=== PATIENT | male | born 1945 | race Caucasian/White ===

== ENCOUNTER 2021-04-23 19:32 | Inpatient (IN) | payer MEDICARE, OTHER ==
[~2021-04-23] VITALS: Ht 160 cm; Wt 69.1 kg
[~2021-04-23 19:32] MED LIST: ROSU5TAB PO; VALS80TA2
--- NOTE | 2021-04-23 19:41 | NUR ---
Note liliana in EDM - 04/23/21 at 1942 by RHIANNON NIRU 89 FROM HOME C/O WEAKENESS AND HYPOTENSION, PT STATES HAVING DIARRHEA X1 DAYS AND NOT DRINKING MUCH WATER, BP WNL, HR IN THE 30-40S MD AT BEDSIDE FOR EVAL
--- NOTE | 2021-04-23 19:51 | NUR ---
CALLED [facility], PAGED IN HOUSE COUNSEL DR TSAI
[2021-04-23 19:58] LABS: BASOPHILS # (AUTO) 0.1 /CMM (0.0-0.2); EOSINOPHILS % (AUTO) 1.6 % (0.0-6.0); HEMATOCRIT 45 % (39-51); LYMPHOCYTES # (AUTO) 3.4 /CMM (0.8-4.8); LYMPHOCYTES % (AUTO) 29.2 % (20.0-44.0); MEAN CORPUSCULAR HGB CONC 31 g/dl (31.0-36.0); MEAN CORPUSCULAR VOLUME 79 fL (80-96); MONOCYTES # (AUTO) 1.4 /CMM (0.1-1.30); MONOCYTES % (AUTO) 12.4 % (2.0-12.0); NEUTROPHILS # (AUTO) 6.5 /CMM (1.8-8.9); NEUTROPHILS % (AUTO) 55.8 % (43.0-81.0); PLATELET COUNT (AUTO) 210 /CMM (150-450); RED BLOOD CELL COUNT(AUTO) 5.66 MIL/uL (4.5-6.0); WHITE BLOOD COUNT (AUTO) 11.7 K/uL (4.3-11.0)
[2021-04-23] MEDS ORDERED: IV NS 0.9% 1,000 ML BAG IV ONE (20:00)
[2021-04-23 20:09] LABS: CALCIUM, SERUM 8.5 mg/dL (8.5-10.1); CARBON DIOXIDE 20 mmol/L (21-32); CHLORIDE 104 mmol/L (98-107); CREATININE 1.3 mg/dL (0.6-1.3); GLUCOSE 158 mg/dL (74-106); POTASSIUM 3.5 mmol/L (3.5-5.1); SODIUM SERUM 138 mmol/L (136-145); UREA NITROGEN, BLOOD 29 mg/dL (7-18)
[2021-04-23 20:21] LABS: MAGNESIUM 1.5 mg/dL (1.8-2.4); NT-PRO BNP 32 pg/mL (0-125); PHOSPHORUS 3.6 mg/dL (2.5-4.9)
--- NOTE | 2021-04-23 20:23 | NUR ---
PANEL PAGED PER MD'S ORDER
[2021-04-23] MEDS ORDERED: Magnesium 1 GM/2 ML VIAL IV ONE (20:30)
[2021-04-23] MEDS ORDERED: Magnesium 1GM/D5W 100ML PREMIX 200 ML IV ONE (20:33)
--- NOTE | 2021-04-23 20:41 | NUR ---
RE PAGED DR PADILLA
[2021-04-23 20:50] LABS: THYROID STIMULATING HORMONE 4.937 uIU/mL (0.358-3.74)
--- NOTE | 2021-04-23 21:02 | NUR ---
CALLED HOUSE SUP FOR TELE BED
--- NOTE | 2021-04-23 21:24 | NUR ---
ROOM 312-2
[2021-04-23] MEDS ORDERED: IV NS 0.9% 1,000 ML IV ONE (21:30)
[2021-04-23] MEDS ORDERED: MAG HYDROX/AL HYDROX/SIMETH 30 ML UDC PO PRN (21:30)
[2021-04-23] MEDS ORDERED: ONDANSETRON HCL/PF 4 MG/2 ML VIAL IVP PRN (21:30)
[2021-04-23] MEDS ORDERED: HYDROCODONE/APAP 5/325MG TABLET PO PRN (21:30)
[2021-04-23] MEDS ORDERED: ZOLPIDEM TARTRATE 5 MG TABLET PO PRN (21:30)
[2021-04-23] MEDS ORDERED: Z GUARD REMEDY 2 OZ OINT TP PRN (21:30)
[2021-04-23] MEDS ORDERED: ACETAMINOPHEN 325 MG TABLET PO PRN (21:30)
[2021-04-23] MEDS ORDERED: MAGNESIUM HYDROXIDE 30 ML UDC PO PRN (21:30)
--- NOTE | 2021-04-23 22:00 | NUR ---
PT TRANSPORTED TO ROOM 312-2
[2021-04-23 22:01] VITALS: BP 120/66
--- NOTE | 2021-04-23 22:01 | NUR ---
ENAMEL MACHINE OPERATOR: ADMISSION 76 y/o male A/O x4. Skin checked done, skin intact, no pressure injury. No c/o pain. Oriented to room, unit, staff. Fall precaution maintained.
[2021-04-23 22:44] VITALS: BP 120/66
[2021-04-24 00:13] VITALS: BP 109/62
[2021-04-24 04:20] VITALS: BP 105/63
--- NOTE | 2021-04-24 06:01 | NUR ---
CONTROL CENTER OPERATOR: END OF SHIFT REPORT Sinus Sumit in the Tele monitor HR 49. Patient no distress, no c/o chest pain, tolerating room air. Patient independent with mobility, no episode of fainting, no dizziness during ambulation. Ongoing IVF. Fall precaution maintained. Will endorse to oncoming RN.
[2021-04-24 06:28] LABS: BASOPHILS % (AUTO) 0.4 % (0.0-2.0); EOSINOPHILS % (AUTO) 1.1 % (0.0-6.0); HEMATOCRIT 43 % (39-51); HEMOGLOBIN 13.7 g/dL (13.5-17.5); LYMPHOCYTES # (AUTO) 2.7 /CMM (0.8-4.8); LYMPHOCYTES % (AUTO) 24.1 % (20.0-44.0); MEAN CORPUSCULAR HGB CONC 32 g/dl (31.0-36.0); MEAN CORPUSCULAR VOLUME 80 fL (80-96); MONOCYTES # (AUTO) 1.2 /CMM (0.1-1.30); MONOCYTES % (AUTO) 10.9 % (2.0-12.0); NEUTROPHILS # (AUTO) 7.1 /CMM (1.8-8.9); NEUTROPHILS % (AUTO) 63.5 % (43.0-81.0); PLATELET COUNT (AUTO) 194 /CMM (150-450); RED BLOOD CELL COUNT(AUTO) 5.42 MIL/uL (4.5-6.0); WHITE BLOOD COUNT (AUTO) 11.2 K/uL (4.3-11.0)
[2021-04-24 06:31] LABS: CALCIUM, SERUM 8.5 mg/dL (8.5-10.1); CREATININE 1.3 mg/dL (0.6-1.3); PHOSPHORUS 3.5 mg/dL (2.5-4.9); POTASSIUM 3.9 mmol/L (3.5-5.1)
--- NOTE | 2021-04-24 07:15 | NUR ---
HOME AID OPENING NOTE PATIENT RECEIVED ALERT AND ORIENTED X 4 ON BED. PATIENT ON ROOM AIR WITH NON LABORED AND EVEN/ REGULAR BREATHING, WITH NO SIGNS OF RESPIRATORY DISTRESS. PATIENT WITH IV ACCESS ON RIGHT FA G#22 AND LEFT AC G#20 WITH NORMAL SALINE RUNNING AT 75ML/HR, PATENT AND INTACT. PATIENT AMBULATORY WITH NO ASSISTIVE DEVICES. SAFETY MEASURES ENSURED WITH SIDERAILS UP, BEDS LOCKED AND AT LOWEST POSITION. CALL LIGHT AND TABLE WITHIN REACH AT ALL TIMES. WILL CONTINUE TO MONITOR PATIENT.
[2021-04-24 08:00] VITALS: BP 126/69
[2021-04-24] MEDS ORDERED: IV NS 0.9% 1,000 ML IV SCH (08:00)
[2021-04-24] MEDS ORDERED: VALSARTAN 80 MG TABLET PO SCH (09:00)
[2021-04-24] MEDS ORDERED: ATORVASTATIN 10 MG TABLET PO SCH (09:00)
--- NOTE | 2021-04-24 09:07 | NUR ---
SEPTIC TANK CLEANER NOTE PATIENT SEEN BY DR. DEJESUS. PATIENT REFUSED PACEMAKER PLACEMENT AND SIGNED AMA FORM, VERBALIZED UNDERSTANDING AND REPERCUSSIONS OF ACTION. FORM ATTACHED TO CHART. PER PATIENT, FAMILY WILL PICK HIM UP IN A WHILE.
--- NOTE | 2021-04-24 10:00 | NUR ---
RN NOTE PATIENT WENT HOME AGAINST MEDICAL ADVISE. ACCOMPANIED BY NURSE ON A WHEELCHAIR WITH DRIVING THE PATIENT HOME. IN STABLE CONDITION.
== END 2021-04-24 10:00 | disposition left against medical advice (07) | DRG 640 ==
LOC: ER 19:36 → TELE 21:25
PROVIDERS: ADMIT Family Medicine; ATTEND Family Medicine
DX: E83.42 Hypomagnesemia (principal); N17.0 Acute kidney failure with tubular necrosis; E87.2 Acidosis; I95.9 Hypotension, unspecified; D72.829 Elevated white blood cell count, unspecified; Z20.822 Contact with and (suspected) exposure to COVID-19; E11.9 Type 2 diabetes mellitus without complications; E66.9 Obesity, unspecified; E78.5 Hyperlipidemia, unspecified; E87.6 Hypokalemia; I10 Essential (primary) hypertension; Z68.27 Body mass index [BMI] 27.0-27.9, adult; Z71.3 Dietary counseling and surveillance; R07.9 Chest pain, unspecified; R00.1 Bradycardia, unspecified
CPT/HCPCS: 36415; 71045-TC; 80048-TC; 80061-TC; 83735-TC; 83880; 84100-TC; 84443-TC; 84484-TC; 85025-TC; 85730-TC; 87081-TC; C9803; G0378; J3475; J7030